=== PATIENT | male | born 1980 | race Caucasian/White ===

== ENCOUNTER 2018-03-24 10:20 | Observation (INO) ==
[2018-03-24] MEDS ORDERED: methylPREDNISolone 125 MG/2 ML VIAL IVP ONE (11:00)
[2018-03-24] MEDS ORDERED: 0.9 % Sodium Chloride 1,000 ML IVC ONE (11:00)
[2018-03-24 11:32] LABS: Basophils # 0.1 K/mcL (0.0-0.2); Basophils % 1.1 %; Eosinophils # 0.2 K/mcL (0.0-0.6); Eosinophils % 1.8 %; Hematocrit 40.1 % (37.5-50.1); Hemoglobin 13.7 g/dL (12.9-16.9); Immature Granulocytes % 1.4 % (0-4); Lymphocytes # 2.1 K/mcL (0.6-4.6); Mean Corpuscular HGB Conc 34.2 g/dL (31.6-35.5); Mean Corpuscular Hemoglobin 27.7 pg (28.0-33.3); Mean Corpuscular Volume 81.2 fL (83.0-100.0); Mean Platelet Volume 10.1 fL (9.4-12.4); Monocytes # 0.8 K/mcL (0.0-1.3); Monocytes % 7.3 %; Platelet Count 236 K/mcL (140-400); Red Blood Count 4.94 M/mcL (4.19-5.50); Red Cell Distribution Width 13.3 % (11.5-14.5); Segmented Neutrophils % 70.4 %
[2018-03-24 11:45] LABS: Bilirubin,Urine Negative (Negative); Blood,Urine Negative (Negative); Clarity,Urine Clear (Clear); Color,Urine Yellow (Yellow); Glucose,Urine (UA) Normal (Normal); Ketones,Urine Negative (Negative); Leukocyte Esterase,Urine Negative (Negative); Nitrite,Urine Negative (Negative); Protein,Urine Trace mg/dL (Neg-Trace); Specific Gravity,Urine 1.021 (1.010-1.025); Urobilinogen,Urine Normal (Normal)
[2018-03-24 11:48] LABS: Bacteria,Urine None Seen per hpf (None-Few); Hyaline Casts,Urine None Seen per lpf (None-Few); Squamous Epithelial Cell,Urine None Seen per lpf (None-Few); WBC,Urine 0-3 per hpf (0-3)
[2018-03-24 11:57] LABS: Alanine Aminotransferase 22 Units/L (7-52); Albumin 4.5 g/dL (3.5-5.7); Albumin/Globulin Ratio 1.5 (1.1-2.2); Alkaline Phosphatase 83 Units/L (34-104); Aspartate Amino Transferase 17 Units/L (13-39); BUN/Creatinine Ratio 17 (6-26); Bilirubin,Total 0.4 mg/dL (0.3-1.0); Blood Urea Nitrogen 14 mg/dL (6-20); Calcium 9.5 mg/dL (8.6-10.3); Carbon Dioxide 23 mEq/L (23-29); Chloride 106 mEq/L (98-107); Creatine Kinase 213 Units/L (30-223); Glucose 95 mg/dL (70-105); Osmolality,Calculated 288 (280-300); Potassium 3.6 mEq/L (3.5-5.1); Sodium 139 mEq/L (136-145); Total Protein 7.5 g/dL (6.4-8.9); eGFR For Non-African Americans > 60 (> 60)
--- NOTE | 2018-03-24 13:56 | Emergency Department Note ---
Disposition Clinical Impression: Weakness, Dermatomyositis Disposition: Admitted As Inpatient Condition: Good Referrals: Porter Carrion DO [Primary Care Provider] - General Adult HPI - General Chief complaint: ED Shortness of Breath/Dyspnea Stated complaint: KAELYN,Muscle weakness Time Seen by Provider: 03/24/18 10:48 Source: patient Mode of arrival: ambulatory Limitations: no limitations Nursing Notes Reviewed: Yes Vital Signs Reviewed: Yes - History of Present Illness HPI Narrative: Patient presents to the emergency department today for evaluation of weakness and shortness of breath. The patient has a significant history of dermatomyositis. Has been followed by [place] specialist. The specialist has no longer been seeing him as he is out of clinic and that patient has not gotten follow-up. He is on been on 20 mg of prednisone along with methotrexate to help control his symptoms. 2 days ago he started having weakness. Similar to previous dermatomyositis flareups. Today the patient had to use his crutches which she has not used in over 2 years. The patient has 1 out of 5 weakness in the lower extremities. Weakness in the upper extremities. He becomes tachypnea with conversation but has no respiratory distress at rest. Patient will undergo further evaluation for dermatomyositis as well as get a dose of 125 of Solu-Medrol. Pain Scale: 9 - Related Data Home Medications Medication Instructions Recorded Confirmed Methotrexate Sodium/PF 25 mg IM MO 12/21/15 03/24/18 [Methotrexate 25 mg/ml Vial] Morphine Sulfate ER (24 HR) 30 mg PO TID 12/21/15 03/24/18 [Morphine Sulfate ER Caps] predniSONE [PredniSONE] 20 mg PO DAILY 11/11/17 03/24/18 Calc/D3/Mag/Zn/Leticia/Victoriano/Braxton 1 tab PO DAILY 03/24/18 03/24/18 [Calcium 600 mg Plus Vit D Tab] Folic Acid 1 mg PO DAILY 03/24/18 03/24/18 Oxycodone HCl/Acetaminophen 1 tab PO BID 03/24/18 03/24/18 [Percocet 10-325 mg Tablet] Allergies Allergy/AdvReac Type Severity Reaction Status Date / Time gabapentin AdvReac Confusion Verified 03/24/18 10:34 pregabalin [From Lyrica] AdvReac Fainting Verified 03/24/18 10:34 Review of Systems: CONSTITUTIONAL: Weakness and fatigue without fever and chills HEENT: Eyes: No visual changes. Ears, Nose, Throat: No hearing loss, difficulty talking or unable to swallow. SKIN: No rash or itching. CARDIOVASCULAR: No chest pain, chest pressure or chest discomfort. No palpitations or edema. RESPIRATORY: Shortness of breath worse with exertion and conversation. No cough GASTROINTESTINAL: No anorexia, nausea, vomiting or diarrhea. No abdominal pain or blood. GENITOURINARY: No burning on urination or hematuria. NEUROLOGICAL: No headache, dizziness, syncope, paralysis, ataxia, numbness or tingling in the extremities. No change in bowel or bladder control. MUSCULOSKELETAL: Generalized muscle aches worse in the lower extremities and low back. Past Medical History - Past Medical History Medical history: Reports: osteoporosis, thyroid disease Surgical history: Reports: sinus surgery, other Psychiatric history: Reports: depression, prior suicide attempt - Social History Smoking Status: Never smoker Smokeless Tobacco Status: No Alcohol use: Reports: none Drug use: Reports: none Physical Exam General: Generalized weakness with mild tachypnea on conversation- Head: Normocephalic Atraumatic Eyes: PERRL, EOMI ENT: Airway patent, no stridor Neck: supple, no meningismus Chest: Lungs clear to auscultation bilateral Cardiac: Regular rate and rhythm, no murmurs, rubs or gallops Abdomen: soft, nontender, nondistended; no guarding, rebound, or tenderness to percussion Musculoskeletal: Calves symmetric, mild associated tenderness. Muscle strength in the lower extremities is 1/5. Upper extremities are 3/5. Skin: No rash, normal skin tone Neuro: Alert and Oriented to person, place, and time; No focal deficit, CN 2-12 symmetric and intact, sensation intact throughout the extremities. - General General appearance: alert, in no apparent distress Course - Reevaluation(s) Reevaluation #1: Patient had negative inspiratory pressure with respiratory therapy of negative - 23. Normal is approximately negative 60-80 (after discussion with respiratory therapy). Positive numbers would require respiratory support. The patient is familiar with his respiratory support needs. He does not feel that he needs BiPAP at this time. Patient has required multiple intubations for this condition. Patient has CPAP at home. I did discuss the case with rheumatology. They have concern is his high-dose steroids at home for the last year or so. 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 Patient are he did receive 125 of Solu-Medrol. He will evaluate the patient as long as the patient is not getting worse, he does not need further steroids. Patient's negative inspiratory pressure worsens, he recommends giving a total of 500 mg of Solu-Medrol. Patient will be admitted to the hospitalist team. - Consultations Consultation #1: Discussed with rheumatology. Please see reevaluation note #1. He will be evaluated by rheumatology later today. Consultation #2: Discussed with hospitalist. Patient accepted for admission. Vital Signs Temperature 98.1 F 03/24/18 10:31 Pulse Rate 91 03/24/18 10:31 Respiratory Rate 20 03/24/18 10:31 Blood Pressure 168/110 03/24/18 10:31 O2 Sat by Pulse Oximetry 100 03/24/18 10:31 Temperature 98.1 F 03/24/18 10:38 Pulse Rate 79 03/24/18 11:45 Respiratory Rate 20 03/24/18 11:45 Blood Pressure 146/101 03/24/18 11:45 O2 Sat by Pulse Oximetry 94 03/24/18 11:45 Oxygen Delivery Oxygen Delivery Room Air Medical Decision Making - Medical Records Medical records reviewed: Yes I reviewed the patient's medical records. - Lab Data Lab results reviewed: Yes I reviewed the patient's lab results. Result diagrams: 03/24/18 11:10 03/24/18 11:10 Lab Results 03/24/18 03/24/18 03/24/18 Range/Units 11:10 11:10 11:36 WBC 11.4 H (4.3-11.1) K/mcL RBC 4.94 (4.19-5.50) M/mcL Hgb 13.7 (12.9-16.9) g/dL Hct 40.1 (37.5-50.1) % MCV 81.2 L (83.0-100.0) fL MCH 27.7 L (28.0-33.3) pg MCHC 34.2 (31.6-35.5) g/dL RDW 13.3 (11.5-14.5) % Plt Count 236 (140-400) K/mcL MPV 10.1 (9.4-12.4) fL Immature Gran % 1.4 (0-4) % Seg Neutrophils % 70.4 % Lymphocytes % 18.0 % Monocytes % 7.3 % Eosinophils % 1.8 % Basophils % 1.1 % Neutrophils # 8.0 (1.6-8.9) K/mcL Lymphocytes # 2.1 (0.6-4.6) K/mcL Monocytes # 0.8 (0.0-1.3) K/mcL Eosinophils # 0.2 (0.0-0.6) K/mcL Basophils # 0.1 (0.0-0.2) K/mcL Sodium 139 (136-145) mEq/L Potassium 3.6 (3.5-5.1) mEq/L Chloride 106 (98-107) mEq/L Carbon Dioxide 23 (23-29) mEq/L BUN 14 (6-20) mg/dL Creatinine 0.84 (0.70-1.30) mg/dL Est GFR ( Amer) > 60 (> 60) Est GFR (Non-Af Amer) > 60 (> 60) BUN/Creatinine Ratio 17 (6-26) Glucose 95 (70-105) mg/dL Calculated Osmolality 288 (280-300) Calcium 9.5 (8.6-10.3) mg/dL Total Bilirubin 0.4 (0.3-1.0) mg/dL AST 17 (13-39) Units/L ALT 22 (7-52) Units/L Alkaline Phosphatase 83 (34-104) Units/L Creatine Kinase 213 (30-223) Units/L Serum Total Protein 7.5 (6.4-8.9) g/dL Albumin 4.5 (3.5-5.7) g/dL Globulin 3.0 (2.4-3.5) g/dL Albumin/Globulin Ratio 1.5 (1.1-2.2) Urine Color Yellow (Yellow) Urine Clarity Clear (Clear) Urine pH 6.0 (5.0-8.0) pH Units Ur Specific [place] 1.021 (1.010-1.025) Urine Protein Trace (Neg-Trace) mg/dL Urine Glucose (UA) Normal (Normal) mg/dL Urine Ketones Negative (Negative) mg/dL Urine Blood Negative (Negative) Urine Nitrite Negative (Negative) Urine Bilirubin Negative (Negative) Urine Urobilinogen Normal (Normal) mg/dL Ur Leukocyte Esterase Negative (Negative) Urine Microscopic RBC 3-5 H (0-3) per hpf Urine Microscopic WBC 0-3 (0-3) per hpf Ur Squamous Epith Cells None Seen (None-Few) per lpf Urine Bacteria None Seen (None-Few) per hpf Hyaline Casts None Seen (None-Few) per lpf Ur Culture Indicated? NO (NO) - Radiology Data Radiology results reviewed: Yes I reviewed the patient's radiology results. - EKG Data EKG #1 EKG attestation: Yes I reviewed and interpreted this EKG. EKG results narrative: EKG shows sinus rhythm with heart rate of 84. MA 151. QRS 100. QTC 431. Patient has no skin ST elevations or T-wave changes.
--- NOTE | 2018-03-24 14:28 | Rheumatology Consult Note ---
Date of Encounter: 03/24/18 Time of Encounter: 14:26 Rheumatology Assess and Plan (1) Generalized muscle weakness Current Visit: Yes Status: Acute 37M with history of Dermatomyositis with multiple flares requiring intubation in the past. Came in with muscle weakness for couple days. Also reports shortness of breath requiring him to use his oxygen at home (2L PRN-which he has not needed to use for over one year). CBC, CMP, CPK, UA unremarkable. Assesssment: Etiology of muscle weakness unclear at this time. Could be acute flare of dermatomyositis, but unlikely in setting of normal CPK. Differentials include thyroid disfunction, steroid induced myopathy, neurological causes (MG, ALS..etc), vasculitis, infectious myositis. High suspicion of steroid induced myopathy in setting of chronic steroid use. Plan: ESR, CRP, Aldolase, LDH, TSH pending. Avoid pulse dose steroids, as there is high suspicion for steroid induced myopathy. Start prednisone 60mg daily. Start IVIG 2g/kg over 5 days. recommend consulting respiratory therapist to measure vital capacity, negative inspiratory force q4H, to look for diaphragmatic weakness and signs of hypercapnea. if respiratory status worsens, recommend transfer to ICU and get critical care involved to assess need for intubation. Hold Methotrexate. (2) Dermatomyositis Current Visit: Yes Status: Chronic History of Dermatomyositis diagnosed in 2010. Used to see Dr. Carrion at [facility]. Last saw a stripper apprentice 7 months ago. Currently on MTX 25mg weekly and prednisone 20mg daily (has been on this dose for 7 months, tapered down from 80mg daily). Rheumatology HPI Consult date: 03/24/18 Requesting physician: Han Steele Consult reason: possible dermatomyositis flare Chief complaint: weakness History of present illness: Mr. Beckett is a 37 year old male with PMHx of Dermatomyositis (diagnosed in - used to see [employer] Analyst Dr. Carrion at [facility]). He last saw his stripper apprentice about 7 months ago. Patient takes MTX and prednisone 20mg at home (has been on 20mg prednisone for about 7 months. Was weaned down from 80 mg prednisone prior to that). Patient was doing relatively well until a couple of days ago where he started feeling extreme fatigue and weakness in his legs and arms. His weakness was so severe that he could not get up out of a chair from a seated position. He was having trouble lifting his arms to wash his hair. He also had trouble walking yesterday and started to have an unsteady gait. He reprots extgreme soreness in the muscles of his calves, thighs, and upper arms. Patient started to become short of breath last night, and this was so severe that he had to use his oxygen , which he hadn't sued in over one year (he is prescribed 2L oxygen PRN). He denies being sick recently and denies any sick contacts. He was worried that his weakness was getting worse so he drove himself to the ED. He has had multiple flares of his dermatomyositis in the past requiring intubation. Social History: . Lives with his . works as technical maintenance specialist. Denies current or past history of smoking. Denies IV drug use. Lives in [place]. Surgical History: Right arm muscle biopsy 2011. Ankle surgeries for broken tibia /fibula from sports 20 years ago. Had sinus surgery 13 years ago. Family History: Mother: history of breast cancer and Raynauds. Denies family history of RA, Lupus, or other autoimmune diseases. Past Med Surg Social Fam HX - Past Medical History Medical history: osteoporosis, thyroid disease Additional medical history: vit d defieciency. depression, dermatomyositis. auto immune disease. adrenal deficiency Psychiatric history: depression, prior suicide attempt - Past Surgical History Surgical History: sinus surgery, other Additional surgical history: right ankle,tibia and fibula - Social History Smoking Status: Never smoker Smokeless Tobacco Status: No Alcohol use: none Drug use: none Medications and Allergies Methotrexate Sodium/PF [Methotrexate 25 mg/ml Vial] 25 mg IM MO 12/21/15 [ History] Morphine Sulfate ER (24 HR) [Morphine Sulfate ER Caps] 30 mg PO TID 12/21/15 [ History] predniSONE [PredniSONE] 20 mg PO DAILY 11/11/17 [History] Calc/D3/Mag/Zn/Leticia/Victoriano/Polo [Calcium 600 mg Plus Vit D Tab] 1 tab PO DAILY [History] Folic Acid 1 mg PO DAILY 03/24/18 [History] Oxycodone HCl/Acetaminophen [Percocet 10-325 mg Tablet] 1 tab PO BID 03/24/18 [ History] 3 Allergy/AdvReac Type Severity Reaction Status Date / Time gabapentin AdvReac Confusion Verified 03/24/18 10:34 pregabalin [From Lyrica] AdvReac Fainting Verified 03/24/18 10:34 All Systems Review: The remainder of the systems were reviewed and are negative Review of Systems: General: denies nausea, vomiting, diarrhea, fevers, chills, chest pain. . Neuro: admits to difficulty walking, admits to muscle weakness. no history of seizures. denies memory problems. ENT: no oral or genital ulcers. CV: no chest pain. denies history of serositis. denies palpitations. Respiratory: Admits to Shortness of breath. denies cough, hemoptysis. GI: denies hematochezia and melena. admits to GERD Heme/onc: denies history of blood clots. Denies history of malignancy. MSK: as per HPI Rheumatology Exam Vital Signs, Last 4 Hours Temp Pulse Resp BP Pulse Ox 03/24/18 11:45 79 20 146/101 94 03/24/18 10:38 98.1 F 91 20 168/110 100 03/24/18 10:31 98.1 F 91 20 168/110 100 Exam: General: alert and oriented x3. Appears to be in mild conversational dyspnea. Appears diaphoretic. ENT: normal appearance of ears, nose, throat, normal nasal mucosa. no oral or nasal ulcers CV: RRR, no murmurs, rubs, gallops. No palpable thrill. No lower extremity edema. Respiratory: CTAB. Appears to be in no respiratory distress. No intercostal retractions. No accessory muscle use. No tactile fremitus. Abdomen: obese, soft, non distended, non tender, bowel sounds present. NO organomegaly. No hernias present Extremities: no cyanosis or edema. skin: extensive striae present on the back. Gottrons papules present along the MCP joints. No lesions or ulcers noted. No induration. Neuro: Significantly decreased muscle strength on all four extremities. Muscle strength 2/5. Patient barely able to move arms past 90 degrees. Could not raise legs up off bed more than about 1 inch. MSK: no joint swelling, erythema, effusions noted. Gait could not be assessed due to significant weakness. no clubbing of the nails or abnormal nailfolds. Rheumatology Results 03/24/18 11:10 03/24/18 11:10 All other labs normal. Consult Discharge Plan - Plan Referrals: Porter Carrion DO [Primary Care Provider] -
[2018-03-24] MEDS ORDERED: *HR* OxyCODONE Immed Rel 5 MG TABLET PO STA (15:12)
--- NOTE | 2018-03-24 15:42 | Internal Med History&Physical ---
Date of Encounter: 03/24/18 Time of Encounter: 14:00 Internal Medicine - H&P: HPI Chief complaint: Generalized muscle weakness Admitted From: Home Plans for Post Hospital Care: Home History of present illness: Patient is a 37-year-old male with past medical history significant for dermatomyositis who presents to the ER on 03/24/18 due to generalized muscle weakness. Patient reports that for the past 3 days he has gradually had increased muscle weakness in his legs and arms. Patient reports that muscle weakness in his legs got so bad the day of admission that he was unable to lift them. Patient decided to come to the ER for evaluation. Patient reports of being managed by family medicine resident at [facility] and had been on methotrexate in addition to daily prednisone. Patient however reports of not having a recent follow-up with that family medicine resident and is currently looking for a new family medicine resident to establish with. Patient reports that his last flare-up was approximately 2 years ago and he was intubated approximately 4 years ago due to flare-up. In the ER, patient was found to have slight leukocytosis but otherwise labs are unremarkable. As x-ray showed no acute findings. Patient was given 125 mg dose of methylprednisolone in the ER. Rheumatology was consulted from the ER give further recommendations. Patient will be admitted to the progressive unit for closer monitoring of respiratory status. Past Med Surg Social Fam HX - Past Medical History Medical history: osteoporosis, thyroid disease Additional medical history: vit d defieciency. depression, dermatomyositis. auto immune disease. adrenal deficiency Psychiatric history: depression, prior suicide attempt - Past Surgical History Surgical History: sinus surgery, other Additional surgical history: right ankle,tibia and fibula - Social History Smoking Status: Never smoker Smokeless Tobacco Status: No Alcohol use: none Drug use: none - Additional Family History Additional family history: Noncontributory Internal Medicine - H&P: Meds Methotrexate Sodium/PF [Methotrexate 25 mg/ml Vial] 25 mg IM MO 12/21/15 [ History] Morphine Sulfate ER (24 HR) [Morphine Sulfate ER Caps] 30 mg PO TID 12/21/15 [ History] predniSONE [PredniSONE] 20 mg PO DAILY 11/11/17 [History] Calc/D3/Mag/Zn/Leticia/Victoriano/[place] [Calcium 600 mg Plus Vit D Tab] 1 tab PO DAILY [History] Folic Acid 1 mg PO DAILY 03/24/18 [History] Oxycodone HCl/Acetaminophen [Percocet 10-325 mg Tablet] 1 tab PO BID 03/24/18 [ History] 3 Allergy/AdvReac Type Severity Reaction Status Date / Time gabapentin AdvReac Confusion Verified 03/24/18 10:34 pregabalin [From Lyrica] AdvReac Fainting Verified 03/24/18 10:34 All Systems PM: A 10-system review of systems was performed and is negative for pertinent findings except as documented above in the HPI. - Constitutional Vitals: Temp Pulse Resp BP Pulse Ox 98.1 F 79 20 146/101 94 03/24/18 10:38 03/24/18 11:45 03/24/18 11:45 03/24/18 11:45 03/24/18 11:45 General appearance: Present: no acute distress Exam: As below - Eye Eye exam: Present: normal appearance, PERRL, conjuntiva pink, sclera anicteric Pupils: Present: PERRL - ENT ENT exam: Present: mucous membranes moist - Respiratory Respiratory exam: Present: CTAB. Absent: accessory muscle use, rales, rhonchi, wheezes - Cardiovascular Cardiovascular exam: Present: RRR, +S1, +S2. Absent: diastolic murmur, gallop, rubs, systolic murmur - GI/Abdominal GI/Abdominal exam: Present: normal bowel sounds, soft, no peritoneal signs. Absent: distended, tenderness - Extremities Exam Extremities exam: Absent: pedal edema - Neurological Exam Neurological exam: Present: alert. Absent: altered - Psychiatric Psychiatric exam: Present: normal mood - Skin Skin exam: Present: normal color Internal Med - H&P Results - Labs CBC & Chem 7: 03/24/18 11:10 03/24/18 11:10 - Assessment and plan (1) Generalized muscle weakness Current Visit: Yes Status: Acute Assessment and plan: Patient with past medical history significant for dermatomyositis on oral prednisone and methotrexate at home who reports of a 3 day history of muscle weakness in legs and arms that has gradually gotten worse. Patient was given 125 mg dose of methylprednisolone in the ER. Rheumatology consulted and appreciate recommendations (2) Dermatomyositis Current Visit: Yes Status: Chronic Assessment and plan: Patient reports that his last flare-up was approximately 2 years ago and he was intubated approximately 4 years ago due to flare-up. Patient reports of being managed by family medicine resident at [facility] and had been on methotrexate in addition to daily prednisone. Patient however reports of not having a recent follow-up with that family medicine resident and is currently looking for a new family medicine resident to establish with. (3) DVT prophylaxis Current Visit: No Status: Acute Assessment and plan: Heparin subcutaneous - Time Spent With Patient Total time spent is greater than 50% in coordination of care (as documented) at patient's floor/unit and/or counseling patient:
[2018-03-24] MEDS ORDERED: Naloxone 0.4 MG/ML INJ IVP PRN (16:02)
[2018-03-24] MEDS: *HR* Morphine Sulfate SR (12 HR) 30 MG TABLET.ER PO SCH (20:55)
[2018-03-24] MEDS: *HR* Heparin 5,000 UNIT/ML VIAL SQ SCH (20:55)
[2018-03-24] MEDS ORDERED: *HR* OxyCODONE/APAP 10/325 TABLET PO SCH (21:00)
[2018-03-24] MEDS ORDERED: Immune Globulin, Gamma (IGG) 20 GM/200 ML INFUS..BTL IVC ONE ×2 (21:15)
[2018-03-24] MEDS ORDERED: Immune Globulin, Gamma (IGG) 10 GM/100 ML INFUS..BTL IVC ONE (21:15)
[2018-03-24 22:39] LABS: ABG Base Excess -1 mEq/L (-2 to 3); ABG HCO3 23 mEq/L (21-27); ABG Oxygen Saturation 95 % (95-98); ABG PCO2 35 mmHg (35-45); ABG PH 7.42 pH Units (7.32-7.45); ABG PO2 73 mmHg (85-104); ABG TCO2 24 mEq/L (20-26)
[2018-03-25] MEDS ORDERED: *HR* OxyCODONE/APAP 10/325 TABLET PO PRN (04:07)
[2018-03-25 04:14] LABS: Basophils % 0.1 %; Hematocrit 38.5 % (37.5-50.1); Hemoglobin 12.9 g/dL (12.9-16.9); Immature Granulocytes % 0.8 % (0-4); Lymphocytes # 1.2 K/mcL (0.6-4.6); Lymphocytes % 7.7 %; Mean Corpuscular HGB Conc 33.5 g/dL (31.6-35.5); Mean Corpuscular Volume 80.7 fL (83.0-100.0); Mean Platelet Volume 10.1 fL (9.4-12.4); Monocytes # 1.5 K/mcL (0.0-1.3); Monocytes % 9.6 %; Neutrophils # 12.9 K/mcL (1.6-8.9); Platelet Count 240 K/mcL (140-400); Red Blood Count 4.77 M/mcL (4.19-5.50); Segmented Neutrophils % 81.8 %
[2018-03-25 04:33] LABS: BUN/Creatinine Ratio 24 (6-26); Blood Urea Nitrogen 17 mg/dL (6-20); Calcium 9.7 mg/dL (8.6-10.3); Carbon Dioxide 22 mEq/L (23-29); Chloride 102 mEq/L (98-107); Glucose 105 mg/dL (70-105); Osmolality,Calculated 276 (280-300); Potassium 3.9 mEq/L (3.5-5.1); Sodium 132 mEq/L (136-145); eGFR For Non-African Americans > 60 (> 60)
[2018-03-25] MEDS: *HR* Heparin 5,000 UNIT/ML VIAL SQ SCH (05:40)
[2018-03-25 06:49] LABS: Lactate Dehydrogenase 164 Units/L (140-271)
[2018-03-25] MEDS: *HR* Morphine Sulfate SR (12 HR) 30 MG TABLET.ER PO SCH (08:04)
--- NOTE | 2018-03-25 08:50 | Rheumatology Progress Note ---
Date of Encounter: 03/25/18 Time of Encounter: 07:40 Rheumatology Assess and Plan (1) Generalized muscle weakness Current Visit: Yes Status: Acute Patient is with severe muscle weakness. Overall clinically stable from yesterday. At this time would consider this a flare of the dermatomyositis but will need to consider alternative diagnosis especially given the normal CK. NIF around -20, stable from yesterday; he has had an ABG that was without hypercapnea. - I would recommend continue daggressive therapy with IVIG and he had his first dose yesterday. He has responded very well to this in the past he reports. - I would continue high dosed prednisone 60 mg. Avoided pulse dosing due to overall steroid exposure and lack of response in the past during flares but could consider if needed. - I would like neurology to also evaluate to see if any further workup or alternative diagnoses suggested; called and spoke to Dr. Kulkarni. - Will continue to clinically monitor. If NIFs worsen or decompensates, would get pulmonary involved and transfer with monitoring in the Intensive care unit carefully. (2) Dermatomyositis Current Visit: Yes Status: Chronic (3) On prednisone therapy Current Visit: Yes Status: Acute Given high dosed corticosteroids, would place on PPI. - Subjective Interval history: The patient was seen and examined. He reports he had a stable overnight. He did not sleep very well. He reports his muscle strength is about the same which is weak in the upper and more so on the lower. While he denies shortness of breath at rest, he states that he has difficulty breathing with any exertion. His negative inspiratory pressures have overall been stable a blood gas was obtained which did not show any hypercapnia. He denies any fevers or chills, problems swallowing, cough. He continues to have muscle weakness of his upper or lower. He reports he has had back pain since getting the immunoglobulin. Exam Vital Signs, Last 4 Hours Temp Pulse Resp BP Pulse Ox 03/25/18 08:00 73 18 93 03/25/18 07:18 98.0 F 71 17 128/79 94 Exam: Constitutional - no acute distress, conversant Eyes - Conjunctiva clear and lids without lesions Respiratory - Unlabored breathing, clear to auscultation bilaterally without wheezes and crackles Cardiovascular - S1S2 Regular rate and rhythm without murmurs or extra heart sounds MSK - No synovitis in the upper extremities, no synovitis of the lower extremities. Neuro - Weakness of upper extremities 4/5, wax molder 3/5. Lower extremity at 2.5/5 with reduced dorsiflexion strength. Skin - no ulcerations, no lesions, no induration Psych - Mood normal, affect full, oriented to person place and time. Objective Data 03/25/18 03:39 03/25/18 03:39 All other labs normal. Consult Discharge Plan - Plan Referrals: Porter Carrion DO [Primary Care Provider] - 04/05/18 1:30 pm
[2018-03-25] MEDS ORDERED: Folic Acid 1 MG TABLET PO SCH (09:00)
[2018-03-25] MEDS ORDERED: predniSONE 20 MG TABLET PO SCH (09:00)
[2018-03-25 10:58] LABS: C-Reactive Protein < 5 mg/L (Less than 10)
[2018-03-25 11:58] VITALS: BP 139/95
--- NOTE | 2018-03-25 14:57 | Discharge Summary ---
Orders not resulted at time of discharge: Pending orders 03/24/18 17:21 Aldolase, Serum Routine Date of Encounter: 03/25/18 Time of Encounter: 11:00 - Discharge Diagnosis (1) Generalized muscle weakness Priority: Primary Status: Acute (2) Dermatomyositis Priority: Primary Status: Chronic Hospital course: Patient is a 37-year-old male with past medical history significant for dermatomyositis who presents to the ER on 03/24/18 due to generalized muscle weakness. Patient reports that for the past 3 days he has gradually had increased muscle weakness in his legs and arms. Patient reports that muscle weakness in his legs got so bad the day of admission that he was unable to lift them. Patient decided to come to the ER for evaluation. Patient reports of being managed by foreign diplomat at [facility] and had been on methotrexate in addition to daily prednisone. Patient however reports of not having a recent follow-up with that foreign diplomat and is currently looking for a new foreign diplomat to establish with. Patient reports that his last flare-up was approximately 2 years ago and he was intubated approximately 4 years ago due to flare-up. In the ER, patient was found to have slight leukocytosis but otherwise labs are unremarkable. As x-ray showed no acute findings. Patient was given 125 mg dose of methylprednisolone in the ER. Rheumatology was consulted from the ER give further recommendations. Patient will be admitted to the progressive unit for closer monitoring of respiratory status. During patients hospital stay rheumatology was following with recommendations for IV IgG in addition to oral prednisone. Patient remained stable overnight with no respiratory compromise. However, nursing staff notified me that patient became upset and left AMA before risk and benefits could be addressed. - Time Spent with Patient Total time spent providing and/or coordinating discharge services: Less than 30 minutes - Discharge Medications Home Medications: Methotrexate Sodium/PF [Methotrexate 25 mg/ml Vial] 25 mg IM MO 12/21/15 [ History] Morphine Sulfate ER (24 HR) [Morphine Sulfate ER Caps] 30 mg PO TID 12/21/15 [ History] predniSONE [PredniSONE] 20 mg PO DAILY 11/11/17 [History] Calc/D3/Mag/Zn/[place] [Calcium 600 mg Plus Vit D Tab] 1 tab PO DAILY [History] Folic Acid 1 mg PO DAILY 03/24/18 [History] Oxycodone HCl/Acetaminophen [Percocet 10-325 mg Tablet] 1 tab PO BID 03/24/18 [ History] Allergies/Adverse Reactions: 3 Allergy/AdvReac Type Severity Reaction Status Date / Time gabapentin AdvReac Confusion Verified 03/24/18 10:34 pregabalin [From Lyrica] AdvReac Fainting Verified 03/24/18 10:34 Date of admission: 03/24/18 14:53 Primary care physician: Porter Carrion DO Consults: 03/24/18 20:51 Consult to Respiratory Therapy [CONS] Routine Reason for Consult: negative inspiratory pressures q4h Time Notified: 20:52 Call Completed: Yes - Constitutional Vitals: Temp Pulse Resp BP Pulse Ox 98.2 F 99 24 139/95 91 03/25/18 11:55 03/25/18 13:00 03/25/18 13:00 03/25/18 11:55 03/25/18 13:00 General appearance: Present: no acute distress Exam: Gen.: Nonacute distress, alert and oriented 3 ENT: Mucosal membranes moist Respiratory: Lungs are clear to auscultation bilaterally without any wheezing rhonchi or rales Cardiovascular: Normal S1 and S2 regular rate rhythm no murmurs rubs or gallops Abdomen: Soft, nontender and nondistended with positive bowel sounds Extremities: No lower extremity edema Skin: Normal color - Patient Status Disposition: Left Against Medical Advice Condition: Good - Discharge Instructions Follow Up With: Porter Carrion DO [Primary Care Provider] - 04/05/18 1:30 pm
[2018-03-25] MEDS ORDERED: *HR* OxyCODONE/APAP 10/325 TABLET PO SCH (21:00)
--- NOTE | 2018-03-26 00:45 | Electrocardiograph Report ---
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
== END 2018-03-25 14:42 | disposition left against medical advice (07) ==
LOC: 2NNU 10:20 → EMEROOARM 10:20 → SUATTDRO 14:53 → 2NNU 17:07
PROVIDERS: ADMIT Internal Medicine; ATTEND Hospitalist